=== PATIENT | female | born 1990 | race African-American/Black ===

== ENCOUNTER 2019-01-21 22:36 | Emergency (ER) | payer OTHER ==
[2019-01-22] MEDS ORDERED: Ibuprofen TAB* 400 MG PO ONE (00:26)
--- NOTE | 2019-01-22 00:27 | ED ---
Lower Extremity - HPI Summary HPI Summary: Patient complains of right ankle pain after rolling her right ankle laterally while walking down the street tonight at 6 PM. Denies any other injury pain or symptoms. - History of Current Complaint Chief Complaint: EDExtremityLower Stated Complaint: POSS BROKE RIGHT ANKLE PER PT Time Seen by Provider: 01/21/19 22:51 Hx Obtained From: Patient Mechanism Of Injury: Twisted Onset of Pain: Immediate Onset/Duration: Hours Severity Initially: Severe Severity Currently: Severe Pain Intensity: 8 Pain Scale Used: 0-10 Numeric Timing: Constant Location: Is Discrete @ Character Of Pain: Aching Associated Signs And Symptoms: Positive: Swelling Aggravating Factor(s): Standing, Ambulation, Movement Alleviating Factor(s): Rest, Ice Able to Bear Weight: No - Allergies/Home Medications Allergies/Adverse Reactions: Allergies Allergy/AdvReac Type Severity Reaction Status Date / Time No Known Allergies Allergy Verified 01/21/19 22:40 PMH/Surg Hx/FS Hx/Imm Hx Endocrine/Hematology History: Denies: Hx Anticoagulant Therapy Cardiovascular History: Denies: Hx Pacemaker/ICD History: Denies: Hx Dialysis Sensory History: Denies: Hx Legally Blind Opthamlomology History: Denies: Hx Eye Prosthesis EENT History: Denies: Hx Deafness Neurological History: Denies: Hx Dementia Psychiatric History: Denies: Hx Autism Infectious Disease History: No Infectious Disease History: Denies: Traveled Outside the [place] in Last 30 Days - Family History Known Family History: Positive: Non-Contributory - Social History Alcohol Use: Occasionally Hx Substance Use: No Hx Tobacco Use: No Review of Systems Constitutional: Negative Eyes: Negative ENT: Negative Cardiovascular: Negative Respiratory: Negative Gastrointestinal: Negative Genitourinary: Negative Musculoskeletal: Negative Skin: Negative Neurological: Negative Psychological: Normal All Other Systems Reviewed And Are Negative: Yes Physical Exam - Summary Physical Exam Summary: Mild swelling to right ankle. No obvious deformity, erythema, ecchymosis noted. Tenderness along the lateral edge of right foot. PMS intact distally. Triage Information Reviewed: Yes Vital Signs On Initial Exam: Initial Vitals Temp Pulse Resp BP Pulse Ox 98.3 F 101 16 116/90 98 01/21/19 22:39 01/21/19 22:39 01/21/19 22:39 01/21/19 22:39 05/21/19 22:39 Vital Signs Reviewed: Yes Appearance: Positive: Well-Appearing Skin: Positive: Warm Head/Face: Positive: Normal Head/Face Inspection Eyes: Positive: Normal Neck: Positive: Supple Respiratory/Lung Sounds: Positive: Clear to Auscultation Cardiovascular: Positive: Normal Abdomen Description: Positive: Nontender Musculoskeletal: Positive: Normal Neurological: Positive: Normal Psychiatric: Positive: Normal AVPU Assessment: Alert - Mentor Coma Scale Best Eye Response: 4 - Spontaneous Best Motor Response: 6 - Obeys Commands Best Verbal Response: 5 - Oriented Coma Scale Total: 15 Diagnostics - Vital Signs Vital Signs Temp Pulse Resp BP Pulse Ox 01/21/19 22:39 98.3 F 101 16 116/90 98 - Laboratory Lab Statement: Any lab studies that have been ordered have been reviewed, and results considered in the medical decision making process. Lower Extremity Course/Dx - Course Course Of Treatment: Patient complains of right ankle pain after rolling her right ankle laterally while walking down the street tonight at 6 PM. Denies any other injury pain or symptoms. Physical exam:Mild swelling to right ankle. No obvious deformity, erythema, ecchymosis noted. Tenderness along the lateral edge of right foot. PMS intact distally. Vital signs within normal limits. X-ray negative for ankle fracture, positive for dancers fracture with avulsion fracture at base of fifth metatarsal. Patient placed in crutches, a ankle gel splint and postsurgical boot. Advised to follow-up with orthopedics in one week. Patient states she will be [place] and will follow up there. - Diagnoses Provider Diagnoses: Right ankle sprain Discharge - Sign-Out/Discharge Documenting (check all that apply): Patient Departure Patient Received Moderate/Deep Sedation with Procedure: No - Discharge Plan Condition: Stable Disposition: HOME Patient Education Materials: Ankle Sprain (ED), Ankle Stirrup Splint (ED) Referrals: No Primary Care Phys,NOPCP [Primary Care Provider] - Additional Instructions: Use ankle splint and crutches and increase Weightbearing and movement as tolerated. Move ankle gently to promote blood flow. Use ice for swelling. Alternate ibuprofen 600 mg with Tylenol 650 mg every 3 hours for pain. If symptoms last more than a week follow-up with orthopedics Dr. Youssef for further evaluation. Return to the ED for any new or worsening symptoms. - Billing Disposition and Condition Condition: STABLE Disposition: Home
[2019-01-22 01:37] VITALS: BP 121/62
== END 2019-01-22 00:55 | disposition home or self-care (01) ==
LOC: ED 22:36
DX: S93.401A Sprain of unspecified ligament of right ankle, initial encounter (principal); M25.571 Pain in right ankle and joints of right foot; R60.9 Edema, unspecified; X50.9XXA Other and unspecified overexertion or strenuous movements or postures, initial encounter; Y92.9 Unspecified place or not applicable
CPT/HCPCS: 99282; A9270-GY